=== PATIENT | male | born 1975 | race Caucasian/White ===

== ENCOUNTER 2021-09-22 06:15 | Observation (INO) ==
--- NOTE | 2021-09-04 09:44 | PAT Medication Instructions ---
Medication Instructions Date of Service September 04, 2021 Home Medications acetaminophen 325 mg tablet (Tylenol) 325 mg PO QID PRN ibuprofen 200 mg tablet 200 mg PO Q6H PRN ASK your surgeon for instructions ibuprofen 200 mg tablet 200 mg PO Q6H PRN Take morning of surgery With a small sip of water, OTHERWISE NOTHING TO EAT OR DRINK AFTER MIDNIGHT: acetaminophen 325 mg tablet (Tylenol) 325 mg PO QID PRN(if needed) Take evening before surgery acetaminophen 325 mg tablet (Tylenol) 325 mg PO QID PRN(if needed) Other Notes If you have any questions please call us at [phone] or [phone] or [phone] or [phone]
--- NOTE | 2021-09-08 13:05 | Anesthesiology Consultation ---
Date of Service September 08, 2021 Assessment & Plan (1) Encounter for pre-operative examination: - Awaiting review of preop testing (labs + UA, EKG, CXR). - COVID screening: Per assessment on 09/08: No known COVID-19 positive contacts or current COVID-19 related symptoms. Travel screen negative. Surgeon arranging preop COVID testing (advised to have done 09/18; [facility]). Awaiting results. Chart Review Chart Review: Patient seen in Pre Admission Testing Teaching & Discussion Pre-Anesthesia Teaching/Discussion Notes: Instructed NPO after midnight before surgery,except medications with 15 cc of water. Medication instructions provided according to the PAT guidelines. History Surgery Operation Date: 09/22/21 11:35 Proposed Procedures p C5-C7 Anterior Cervical Discectomy and Fusion, Spinal Cord Monitoring - Flaco Ha DO Height/Weight Height: 5 ft 5 in Weight: 77.111 kg Allergies Allergy/AdvReac Type Severity Reaction Status Date / Time No Known Allergies Allergy Verified 09/02/21 14:32 Medications Home Medications Medication Instructions Recorded Confirmed Last Taken acetaminophen 325 mg tablet 325 mg PO QID PRN 09/02/21 09/02/21 Unknown (Tylenol) ibuprofen 200 mg tablet 200 mg PO Q6H PRN 09/02/21 09/02/21 Unknown Past Medical History Medical History Degenerative disc disease Herniated disc, cervical Past Family History Family History Grandfather (Paternal) Diabetes Grandmother (Maternal) Diabetes Grandfather (Maternal) Prostate cancer Past Surgical History Surgical History No significant past surgical history Social History Smoking Status: Former smoker Do You Dip or Chew Tobacco: No Smoking End Date: stopped appox 4 years ago Hx Alcohol Use: Yes Alcohol type: beer, wine and hard liquor alcohol intake frequency: a few times a week Hx Substance Use: No substance use type: does not use Review of Systems Patient denies chest pain, shortness of breath, dyspnea on exertion, fever, chills, cough, wheezing, palpitations. Physical Exam Vital Signs VITALS BP P TEMP SP02 RESP PHYSICAL Full cervical extension range of motion. Full TMJ range of motion. TMD __ finger breaths Mallampati Score ___ Dentition: intact Lungs: clear throughout to auscultation Cardiac: regular rate and rhythm, no murmurs noted Spine: normal Carotid arteries: negative bruit Extremities: no edema
--- NOTE | 2021-09-09 14:40 | Anesthesiology Consultation ---
Date of Service September 09, 2021 Assessment & Plan (1) Encounter for pre-operative examination: - COVID screening: Per assessment on 09/09/2021: Travel screen negative, no known COVID-19 positive contacts or current COVID-19 related symptoms in past 2 weeks. Pt vaccinated. Surgeon arranging preop COVID testing, scheduled 09/18/2021. Awaiting results. Chart Review Chart Review: Acceptable Risk for Surgery and Patient seen in Pre Admission Testing Teaching & Discussion Pre-Anesthesia Teaching/Discussion Notes: Instructed NPO after midnight before surgery, except medications with 15 cc of water. Medication instructions provided according to the PAT guidelines. History Surgery Operation Date: 09/22/21 11:35 Proposed Procedures p C5-C7 Anterior Cervical Discectomy and Fusion, Spinal Cord Monitoring - Flaco Ha DO Height/Weight Height: 5 ft 5 in Weight: 80.3 kg Allergies Allergy/AdvReac Type Severity Reaction Status Date / Time No Known Allergies Allergy Verified 09/02/21 14:32 Medications Home Medications Medication Instructions Recorded Confirmed Last Taken acetaminophen 325 mg tablet 325 mg PO QID PRN 09/02/21 09/02/21 Unknown (Tylenol) ibuprofen 200 mg tablet 200 mg PO Q6H PRN 09/02/21 09/02/21 Unknown Past Medical History Medical History Degenerative disc disease Herniated disc, cervical Patient denies h/o stroke, seizures, heart attack, heart failure, DM, HTN, blood clots or blood transfusions. Exercise / Class Metabolic Activity II 4-5 Yardwork/Stairs/Walk up hill (denies CP or SOB with 1 FOS) Past Family History Family History Grandfather (Paternal) Diabetes Grandmother (Maternal) Diabetes Grandfather (Maternal) Prostate cancer Past Surgical History Surgical History No significant past surgical history Past Anesthesia History No Family Hx of Anesthesia Complications History of PONV No Hx of Motion Sickness Social History Smoking Status: Former smoker Do You Dip or Chew Tobacco: No Smoking End Date: stopped appox 4 years ago Hx Alcohol Use: Yes Alcohol type: beer, wine and hard liquor alcohol intake frequency: a few times a week Hx Substance Use: No substance use type: does not use Review of Systems Chronic intermittent non-productive cough, seasonal allergies. Denies change or worsening. Patient denies chest pain, shortness of breath, dyspnea on exertion, snoring, witnessed apneas, reflux, fever, chills, wheezing, or palpitations. Physical Exam Vital Signs Vitals BP 117/77 P 76 TEMP 99.1 SP02 96% on RA RESP 17 Physical TMD 3.5 finger breaths Mallampati Score 2 Dentition: intact, two missing teeth-lower left side and upper right side; denies chipped or loose teeth, caps/crowns, implants or bridges Lungs: normal respiratory effort. Clear throughout to auscultation, no adventitious breath sounds Cardiac: regular rate and rhythm, no murmurs noted Carotid arteries: negative bruit bilat Lab Results Anesthesia Preop Results Results Anesthesia Widget: WBC 7.91 K/uL (4.8-10.8) 09/09/21 Hgb 15.2 g/dL (14.0-18.0) 09/09/21 Hct 43.6 % (42-52) 09/09/21 Plt 307 K/uL (130-400) 09/09/21 Na 137 mmol/L (136-145) 09/09/21 K 4.0 mmol/L (3.5-5.1) 09/09/21 Cl 102 mmol/L (98-107) 09/09/21 CO2 30 mmol/L (21-32) 09/09/21 BUN 12 mg/dl (6-23) 09/09/21 Creat 1.05 mg/dl (0.6-1.4) 09/09/21 Glucose Level 73 mg/dl (70-99(Fasting)) 09/09/21 PT 11.4 Seconds (9.0-12.0) 09/09/21 PTT 29.1 Seconds (21.0-31.0) 09/09/21 INR 1.1 (0.9-1.1) 09/09/21 Urine Color Yellow 09/09/21 Urine Appearance Clear (Clear) 09/09/21 Urine pH 7.5 (4.5-7.5) 09/09/21 Urine Specific [place] 1.012 (1.000-1.030) 09/09/21 Urine Protein Negative (Negative) 09/09/21 Urine Glucose (UA) Negative (Negative) 09/09/21 Urine Ketones Negative (Negative) 09/09/21 Urine Blood Negative (Negative) 09/09/21 Urine Nitrite Negative (Negative) 09/09/21 Urine Bilirubin Negative (Negative) 09/09/21 Urine Urobilinogen Negative (Negative) 09/09/21 Urine Leukocyte Esterase Negative (Negative) 09/09/21 Blood Type O Positive 09/09/21 Antibody Screen NEGATIVE 09/09/21 Testing Electrocardiogram Date: 09/09/21 NSR, rate 71 bpm Chest X-Ray Date: 09/09/21 No lines and tubes are seen. The cardiomediastinal silhouette is normal. The lungs are clear. No evidence of pleural effusion or pneumothorax. IMPRESSION: No acute chest disease.
[~2021-09-22 06:15] MED LIST: ACETAMINOPHEN 500 MG TAB PO SCH; CeleBREX 200 MG CAP PO SCH; GABAPENTIN 900 MG DOSE PO SCH; LR 15ML/HR IV SCH; ceFAZolin 2000MG 2,000 MG/15 ML SYR IV SCH
[2021-09-22] MEDS ORDERED: PROPOFOL IV EMULSION 10 MG/ML 100 ML VIAL IV ONE (07:04)
[2021-09-22] MEDS ORDERED: MIDAZOLAM HCL 1 MG/ML 2ML VIAL ONE (07:16)
[2021-09-22] MEDS ORDERED: fentaNYL citrate 100 MCG/2 ML VIAL ONE (07:16)
[2021-09-22] MEDS ORDERED: ATROPINE SULFATE 0.1 MG/ML 10ML SYR IV PRN (07:29)
[2021-09-22] MEDS ORDERED: ONDANSETRON INJ 2 MG/ML 2 ML VIAL IV PRN ×2 (07:29→10:58)
[2021-09-22] MEDS ORDERED: HYDROmorphone INJ 2 MG/ML SYR/VIAL IV PRN (07:29)
[2021-09-22] MEDS ORDERED: PROMETHAZINE HCL 12.5 MG in SODIUM CHLORIDE 0.9% 50 ML IV PRN ×2 (07:29→10:58)
[2021-09-22] MEDS ORDERED: ePHEDrine sulfate 50 MG/ML AMP IV PRN (07:29)
--- NOTE | 2021-09-22 07:30 | History & Physical Bridge Note ---
Date of Service September 22, 2021 History & Physical Bridge Note I have examined the patient, reviewed the History & Physical and in the interval since the performance of the History & Physical I have noted the following changes of clinical significance: no changes noted
--- NOTE | 2021-09-22 07:31 | History & Physical Report ---
Date of Service September 22, 2021 Assessment & Plan (1) Cervical stenosis of spinal canal: Plan: C5-C7 anterior cervical discectomy and fusion History of Present Illness Chief Complaint: Neck and arm pain Primary Care Provider: Emmanuel Olivarez DO This is a 45-year-old male who presents with chronic persistent neck and arm pain after failing course of nonoperative care is here for surgical intervention. Allergies Allergy/AdvReac Type Severity Reaction Status Date / Time No Known Allergies Allergy Verified 09/22/21 06:39 Home Medications Medication Instructions Recorded Confirmed Type acetaminophen 325 mg tablet 325 mg PO QID PRN 09/02/21 09/22/21 History (Tylenol) ibuprofen 200 mg tablet 200 mg PO Q6H PRN 09/02/21 09/22/21 History cholecalciferol (vitamin D3) 25 25 mcg PO DAILY 09/22/21 09/22/21 History mcg (1,000 unit) tablet (Vitamin D3) Past Med/Surg History Medical History Degenerative disc disease Herniated disc, cervical Surgical History No significant past surgical history Family History Grandfather (Paternal) Diabetes Grandmother (Maternal) Diabetes Grandfather (Maternal) Prostate cancer Social History Smoking Status: Former smoker Smoking End Date: stopped appox 4 years ago; Second Hand Exposure: Yes (daily - smokes); Do You Dip or Chew Tobacco: No; Tobacco Cessation Education Requested by Patient: No Hx Alcohol Use: Yes Alcohol type: beer, wine and hard liquor Hx Substance Use: No Preferred Language: Maori Communication Ability: Effective Scrap Dealer Required: No Beliefs That Will Affect Care: None Current Living Situation: Spouse Current Living Situation Comment: with daughter and son Other Information That Helps Us Care for You: No Feels Safe at Home: Yes Safety Concerns: Feels Safe At This Time Assistive Devices: Glasses Physical Exam Physical Exam: Patient is alert and oriented Heart regular rate and rhythm Lungs clear Results & Data Results & Data ([facility]) Vital Signs (Past 12 Hours) Vital Signs Temp Pulse Resp BP Pulse Ox 09/22/21 06:37 36.8 C 66 18 156/96 H 99
[2021-09-22] MEDS ORDERED: HYDROmorphone INJ 2 MG/ML SYR/VIAL ONE (08:10)
[2021-09-22] MEDS ORDERED: LIDOCAINE 2% 2 ML VIAL/AMP(20MG/ML) INFIL ONE (08:13)
[2021-09-22] MEDS ORDERED: LARYING-O-JET KIT (LTA) ONE (08:13)
[2021-09-22] MEDS ORDERED: ROCURONIUM BROMIDE 10 MG/ML 5 ML VIAL IV ONE (08:13)
[2021-09-22] MEDS ORDERED: PROPOFOL IV EMULSION 10 MG/ML 20 ML VIAL IV ONE (08:13)
[2021-09-22] MEDS ORDERED: ONDANSETRON INJ 2 MG/ML 2 ML VIAL ONE (08:13)
[2021-09-22] MEDS ORDERED: SUCCINYLCHOLINE CHLORIDE 20 MG/ML 10 ML VIAL IV ONE (08:13)
[2021-09-22] MEDS ORDERED: NEOSTIGMINE METHYLSULFATE 1 MG/ML 10ML VIAL ONE (08:13)
[2021-09-22] MEDS ORDERED: DEXAMETHASONE SOD INJ 4 MG/ML VIAL ONE (08:13)
[2021-09-22] MEDS ORDERED: GLYCOPYRROLATE 0.2 MG/ML VIAL ONE (08:13)
[2021-09-22] MEDS ORDERED: PHENYLEPHRINE 100MCG/ML 5ML SYR ONE (08:45)
[2021-09-22] MEDS ORDERED: FLOSEAL HEMOSTATIC MATRIX 10ML TOP ONE (09:09)
--- NOTE | 2021-09-22 09:21 | Operative Report ---
Post Operative Report Pre & Post Diagnosis Operation Date: 09/22/21 07:45 Pre-Op Diagnosis: Cervical spinal stenosis with radiculopathy Post-Op Diagnosis: Same I identified the patient and participated in the time-out.: Yes Procedure Operation Date: 09/22/21 07:45 Actual Procedures #1 anterior cervical discectomy with bilateral foraminotomies C5-C6 C6-C7. #2 anterior cervical arthrodesis C5-C6 C6-C7. #3 placement of 8 mm spiral cage at C5-C6 and 9 mm cage at C6-C7 both filled with I factor. #4 application of collado plate and screws from C5-C7. Surgeon Flaco Ha, Rn Mobile Yudy Stinson Estimated Blood Loss 50 Findings Consistent with Post-Op Diagnosis Specimens None Indications This is a 45-year-old male who presents above-mentioned diagnosis after failed course of nonoperative care is here for surgical invention. Description of Procedure Patient was met with identified informed consent obtained. Patient was then taken to the operative suite underwent a patient placed in a supine position Kash table with head Meza head over. All bony prominences well-padded eyes inspected to ensure no external pressure placed upon the. This point the anterior cervical spine was prepped and draped in normal sterile fashion. The assistance of fluoroscopy identified the C6 vertebral body and a transverse incision was placed along the right anterior aspect of the cervical spine overlying this region. Blunt dissection with assistance of bipolar electrocaut charleen was then performed down to expose the anterior cervical spine from C5-C7. Several 10 retractors placed. Then performed a complete discectomy of C5-C6 out to the uncovertebral joints bilaterally. [place] distracting pins were utilized to assist in visualization. Removed all posterior annular fibers longitudinal ligament bilateral foraminotomies performed endplates burred to subcortical bleeding bone and an 8 mm spiral cage with I factor tapped in position. Distracting apparatus was removed and I proceeded to see 6 C7. Again complete discectomy performed out to the uncovertebral joints bilaterally. [place] distracting pins again utilized. Removed all posterior annular fibers longitudinal ligament bilateral foraminotomies performed. Endplates burred to subcortical bleeding bone and a 9 mm spiral cage filled with I factor tapped in position. Distracting apparatus was removed and a 5 complete and screws applied with the assistance of fluoroscopy. The incision was then copiously irrigated explored to ensure no damage to surrounding structures or remaining bleeding. 10 round LOY drain inserted. The incision was then closed with 2 Vicryl in the fascia and a 4 Monocryl for final skin closure. Steri-Strip sterile dressings placed. Patient waken taken to PACU stable condition. Please note spinal cord monitoring visualized at the procedure no changes noted. Lastly Yudy Stinson was present at the entire surgery involved the patient positioning complex portion of the surgery and fascial closure. I attest to the content of the Intraoperative Record and any orders documented therein. Any exceptions are noted below.
[2021-09-22] MEDS ORDERED: ceFAZolin 1000MG 1,000 MG/7.5 ML SYR IV ONE (09:28)
--- NOTE | 2021-09-22 09:49 | Fluoroscopy Report ---
FL cervical 2-3V CLINICAL HISTORY: C5-C7 ACDF TECHNIQUE: 3 views were obtained with the C-arm in the OR with the above procedure. Total fluoroscopy time was 10.2 seconds. Total skin dose was 1.45 mGy. Comparison: None available at the time of this dictation. FINDINGS/IMPRESSION: Intraoperative images were obtained of ACDF spanning C5-C7. Please correlate with intraoperative fluoroscopy and operative report. ACT 112: Negative or not required by law. Electronically signed by: Medhat Ware M.D. 09/22/2021 9:48 AM
[2021-09-22] MEDS: fentaNYL citrate 100 MCG/2 ML VIAL IV PRN ×2 (10:07→10:12)
--- NOTE | 2021-09-22 10:21 | Anesthesiology Progress Note ---
Date of Service September 22, 2021 Anesthesia Post Procedure Vital Signs Vital Signs: Temp Pulse Resp BP BP Pulse Ox 09/22/21 10:10 71 14 119/86 95 09/22/21 10:00 61 7 L 115/78 96 09/22/21 09:50 66 10 L 118/84 96 09/22/21 09:40 69 15 116/77 98 09/22/21 09:31 36.3 C L 72 21 119/74 95 09/22/21 06:37 36.8 C 66 18 156/96 H 99 Pain Intensity Neck: Pain Intensity: 4 Throat: Pain Intensity: 7 Transfer of Care Handoff Completed per policy Notes Mental Status: alert / awake / arousable and participated in evaluation Patient Amnestic to Procedure: Yes Nausea / Vomiting: adequately controlled Pain: adequately controlled Airway Patency, RR, SpO2: stable & adequate BP & HR: stable & adequate Hydration State: stable & adequate Anesthetic Complications: no major complications apparent
[2021-09-22] MEDS ORDERED: METOCLOPRAMIDE HCL INJ 5 MG/ML 2 ML VIAL IV PRN (10:58)
[2021-09-22] MEDS ORDERED: oxyCODONE HCL IR 5 MG TAB (IMMEDIATE RELEASE) PO PRN (10:58)
[2021-09-22] MEDS ORDERED: diphenhydrAMINE Capsule 25 MG CAP PO PRN (10:58)
[2021-09-22] MEDS ORDERED: FAMOTIDINE 20 MG TAB PO PRN (10:58)
[2021-09-22] MEDS ORDERED: LORazepam 0.5 MG in SYRINGE 0.25 ML IV PRN (10:58)
[2021-09-22] MEDS ORDERED: bisacodyL 10 MG SUPP PR PRN (10:58)
[2021-09-22] MEDS ORDERED: ACETAMINOPHEN 1,000 MG/100 ML VIAL IV PRN (10:58)
[2021-09-22] MEDS ORDERED: ALUMINUM/MAGNESIUM SUSP 30 ML UDC PO PRN (10:58)
[2021-09-22] MEDS ORDERED: HYDROmorphone INJ 0.5 MG/0.5 ML SYR IV PRN (10:58)
[2021-09-22] MEDS ORDERED: traMADol HCL 50 MG TABLET PO PRN (10:58)
[2021-09-22] MEDS ORDERED: hydrOXYzine HCl 25 MG TAB PO PRN (10:58)
[2021-09-22] MEDS ORDERED: LORazepam 0.5 MG TAB PO PRN (10:58)
[2021-09-22] MEDS ORDERED: SOD PHOSPHATE/SOD BIPHOSPHATE ENEMA 132 ML BTL PR PRN (10:58)
[2021-09-22] MEDS ORDERED: HYDROmorphone INJ 1 MG/ML SYRINGE IV PRN (10:58)
[2021-09-22] MEDS ORDERED: DO NOT ADMINISTER PNEUMOCOCCAL VACCINE PRN (10:58)
[2021-09-22] MEDS ORDERED: dexAMETHasone 8 MG in SYRINGE 0 ML IV PRN (10:58)
[2021-09-22] MEDS ORDERED: RACEPINEPHRINE 2.25% NEBU SOLN 0.5 ML VIAL INH PRN (10:58)
[2021-09-22] MEDS ORDERED: NALOXONE HCL 0.4 MG/1 ML VIAL/CARP IV PRN (10:58)
[2021-09-22] MEDS ORDERED: MAGNESIUM HYDROXIDE SUSP 30 ML UDC PO PRN (10:58)
[2021-09-22] MEDS ORDERED: ONDANSETRON 4 MG OD TAB PO PRN (10:58)
[2021-09-22] MEDS ORDERED: DO NOT ADMINISTER FLU VACCINE PRN (10:58)
[2021-09-22] MEDS: LACTATED RINGER'S 1,000 ML IV SCH ×3 (11:33→22:08)
[2021-09-22] MEDS: ceFAZolin 2000MG 2,000 MG/15 ML SYR IV SCH (16:05)
[2021-09-22] MEDS ORDERED: DOCUSATE SODIUM/SENNA 50/8.6MG TAB PO SCH (21:00)
[2021-09-23] MEDS: ceFAZolin 2000MG 2,000 MG/15 ML SYR IV SCH (00:03)
[2021-09-23] MEDS: ACETAMINOPHEN 500 MG TAB PO PRN ×2 (02:09→08:51)
[2021-09-23] MEDS: LACTATED RINGER'S 1,000 ML IV SCH (04:06)
[2021-09-23 05:34] LABS: Basophils # (auto) 0.01 K/uL (0-0.2); Basophils % (auto) 0.1 %; Eosinophils # (auto) 0.09 K/uL (0-0.50); Eosinophils % (auto) 0.6 %; Hematocrit (blood only) 40.3 % (40.1-51.0); Hemoglobin 14.2 g/dl (14.0-18.0); Immature Granulocytes # (auto) 0.06 K/uL (0.00-0.02); Immature Granulocytes % (auto) 0.4 %; Lymphocytes # (auto) 1.56 K/uL (1.2-3.4); Mean Corpuscular Hemoglobin 32.6 pg (25.0-34.0); Mean Corpuscular Hgb Conc 35.2 g/dL (32.0-36.0); Mean Corpuscular Volume 92.6 fL (80.0-100.0); Mean Platelet Volume 11.2 fL (9.4-12.4); Monocytes # (auto) 0.85 K/uL (0.24-0.82); Neutrophils # (auto) 11.55 K/uL (1.4-6.5); Neutrophils % (auto) 81.9 %; Platelet Count 243 K/uL (130-400); RDW Coefficient of Variation 12.6 % (11.5-14.5); RDW Standard Deviation 43.2 fL (36.4-46.3); Red Blood Count 4.35 M/uL (4.63-6.08); White Blood Count 14.12 K/ul (4.8-10.8)
[2021-09-23] MEDS ORDERED: POLYETHYLENE (MIRALAX) 17 GM PACK PO SCH (06:00)
[2021-09-23 06:11] LABS: BUN Creatinine Ratio 6.9 (10-20); Calcium 8.8 mg/dl (8.5-10.1); Creatinine Clr Calc Pharmacy 90.3 ml/min; Est GFR (African American) 104.4 ml/min; Potassium 3.8 mmol/L (3.5-5.1)
[2021-09-23] MEDS ORDERED: dexAMETHasone 6 MG in SYRINGE 0 ML IV SCH (09:00)
--- NOTE | 2021-09-23 09:55 | Discharge Summary ---
Date of Service September 23, 2021 Admission HPI Per Admitting Provider This is a 45-year-old male who presents with chronic persistent neck and arm pain after failing course of nonoperative care is here for surgical intervention. Principal Diagnosis Cervical radiculopathy Discharge Data Allergies Allergy/AdvReac Type Severity Reaction Status Date / Time No Known Allergies Allergy Verified 09/22/21 06:39 Procedures Performed Operation Date: 09/22/21 07:45 Actual Procedures p C5-C7 Anterior Cervical Discectomy and Fusion, Spinal Cord Monitoring(Not Applicable) - Flaco Ha DO Ordered Studies 09/22/21 07:45 FL cervical 2-3V Routine Hospital Course (1) Cervical stenosis of spinal canal: Patient 1 anterior cervical discectomy and fusion tolerated this well stable orthopedic for postoperative. Postoperative day 1 he was up and ambulating swallowing well no hoarseness. Excellent strength testing. LOY drain decreasing probably. Subsequent discharge home. Discharge orders instructions can be found in chart for further review. Total Time Total Time Spent Total Time Spent (In Minutes): 20 minutes Discharge Plan Discharge Items Patient Disposition: Home - Self-Care Reason For Visit: Spinal Stenosis, Cervical Region Discharge Diagnosis: Cervical radiculopathy Activity: As commented below Non-emergency contact: Primary Care Provider Call non-emergency contact if: you have any medication questions Follow-up/Referrals: Emmanuel Olivarez DO [Primary Care Provider] - Diet: Regular Addtl Attending Provider Instructions: ACTIVITY RECOMMENDATIONS: SELF CARE INSTRUCTIONS AFTER CERVICAL FUSIONS 1. No smoking. Smoking drastically decreases the chance of a solid fusion. 2. No bending, lifting more than 5 pounds, or twisting (roll like a log when turning in bed). 3. You may shower 3 days after surgery. Thoroughly dry wound. Do not soak in the tub. 4. Cervical collar: Must be worn at all times including sleeping. You may remove the brace only to bath, eat and if you are sitting in a recliner. 5. Please walk as much as you can for exercise. Gradually increase the distance that you walk as your endurance increases. SPECIAL CARE INSTRUCTIONS: VERY IMPORTANT TO READ AND REVIEW A. Do not take any anti-inflammatory medications (i.e. Indocin, Advil, Aspirin, Naprosyn, Aleve, Motrin, etc.) as these may inhibit the chance of a solid fusion. Tylenol is okay to take. B. Your surgical incision has been closed with a cosmetic suture under the skin that will dissolve in about 6 weeks. In 14 days, you can use a pair of clean scissors and cut the suture that is left outside of the skin at the ends of your incision. C. Complications are uncommon, but please contact us if you have any signs or symptoms of: 1. wound infection (fever higher than 102.5 degrees F, redness, separation of wound, drainage, or increasing pain from the incision) 2. blood clots in legs (pain, swelling, redness and warmth in legs) 3. urinary tract infection (fever higher than 102.5 degrees, burning upon urination or increased frequency of urination) 4. nerve problems (inability to walk on your toes or heels, numbness, loss of bowel or bladder control) 5. any other symptoms that concern you. D. Please call the office at if you have any concerns or questions about your operation or recovery. MANAGING PAIN AFTER SPINAL SURGERY 1. Narcotic medication is intended for short-term use and will be provided for surgical pain. Surgical pain usually lasts for a period of 4-6 weeks. Narcotic medication includes Percocet, Vicodin, Darvocet, Tylenol #3 or Lortab. 2. Longer-term pain is more appropriately treated with non-narcotic medication such as Tylenol ES. 3. Muscle spasm is not appropriately treated with narcotics. Muscle relaxers such as Soma, Flexeril or Skelaxin can be used along with Tylenol ES. 4. Remember that we all live with some "aches and pains". This is not unusual or uncommon after an injury or as we get older. 5. We will provide appropriate medication within the normal guidelines of their prescribed use. We will also be very cautious and aware of potential abuse and extended duration of patients' medication needs. 6. Please allow 2-3 days to process refills. Prescriptions will not be mailed but must be picked up at the office. FOLLOW UP VISIT: Keep your scheduled follow-up appointment. Any questions, please call the office at . Pending Studies at Discharge: No Stand-Alone Forms: [employer], Smoking Cessation Medications and [place] Order Prescriptions: New tramadol 50 mg tablet 50 mg PO Q6H PRN (Reason: pain, moderate) Qty: 30 RF: 0 oxycodone 5 mg tablet 5 mg PO Q6H PRN (Reason: pain, severe) Qty: 20 RF: 0 Continued acetaminophen [Tylenol] 325 mg Tablet 325 mg PO QID PRN (Reason: Pain) RF: 0 cholecalciferol (vitamin D3) [Vitamin D3] 25 mcg (1,000 unit) Tablet 25 mcg PO DAILY RF: 0 Discontinued ibuprofen 200 mg Tablet 200 mg PO Q6H PRN (Reason: Pain) RF: 0 Discharge Orders: Discharge Order (Routine); Ordered 09/23/21 Ordered By: Flaco Ha Admission Data Admit Date/Time: 09/22/21 09:24 Attending Provider: Flaco Ha Admit Provider: Flaco Ha Primary Care Provider: Emmanuel Olivarez
== END 2021-09-23 12:00 | disposition home or self-care (01) ==
LOC: ASU 06:15 → INTOOBSV 09:24 → 3E 09:24